=== PATIENT | female | born 2000 | race American Indian/Alaskan Native ===

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

== ENCOUNTER 2020-04-23 08:44 | Inpatient (IN) | payer MEDICAID ==
[2020-04-23] MEDS ORDERED: ePHEDrine SULFATE 50 MG/1 ML INJ IV PRN (09:04)
[2020-04-23] MEDS ORDERED: PROMETHAZINE 25 MG TAB PO PRN (09:04)
[2020-04-23] MEDS ORDERED: LIDOCAINE (2%) 20 MG/1 ML VIAL 20 ML MDV INFILTRATI ONE (09:04)
[2020-04-23] MEDS ORDERED: fentaNYL 100 MCG/2 ML INJ IV PRN (09:04)
[2020-04-23] MEDS ORDERED: BUTORPHANOL 2 MG/1 ML INJ IV PRN ×2 (09:04)
[2020-04-23] MEDS ORDERED: MINERAL OIL 30 ML ORAL LIQD PO PRN (09:04)
[2020-04-23] MEDS ORDERED: NALOXONE 0.4 MG/1 ML INJ IV PRN (09:04)
[2020-04-23] MEDS ORDERED: TERBUTALINE 1 MG/1 ML INJ SUB-Q PRN (09:04)
[2020-04-23] MEDS ORDERED: TERBUTALINE 1 MG/1 ML INJ IVP PRN (09:04)
[2020-04-23] MEDS ORDERED: ONDANSETRON 4 MG/2 ML INJ IV PRN (09:04)
[2020-04-23] MEDS ORDERED: OXYTOCIN DRIP 30 UNITS/500 ML BAG IV SCH (10:00)
[2020-04-23] MEDS ORDERED: OXYTOCIN 20 UNIT/1000ML DRIP 20 UNITS/1,000 ML BAG IV SCH (10:00)
[2020-04-23 10:20] LABS: Hematocrit 32.2 % (30.3-42.9); Hemoglobin 10.8 gm/dl (10.1-14.3); Mean Corpuscular HGB Conc 34 % (30-34); Mean Corpuscular Volume 83 fl (79-97); Platelet Count 212 K/mm3 (140-440); Red Blood Count 3.89 M/mm3 (3.65-5.03); Red Cell Distribution Width 14.6 % (13.2-15.2)
[2020-04-23] MEDS: miSOPROStol 25 MCG TAB PO SCH ×4 (12:27→23:00)
--- NOTE | 2020-04-23 12:50 | History and Physical Report ---
History of Present Illness Date of examination: 04/23/20 Date of admission: 04/23/20 08:44 Chief complaint: Here for induction secondary to post-dates . History of present illness: Pt is a 20 yo at 41w4d EGA who presents for induction of labor secondary to post-dates gestation. She has received care with [facility]. Her has been uncomplicated. She reports positive movement and denies contractions, leakage of fluid, or vaginal bleeding. She is GBS negative. Past History Past Medical History: no pertinent history Past Surgical History: no surgical history Family/Genetic History: none Social history: no significant social history - Obstetrical History Expected Date of Delivery: 04/12/20 Actual Gestation: 41 Week(s) 4 Day(s) : 1 Para: 0 Hx # Term Pregnancies: 0 Number of Pregnancies: 0 Spontaneous Abortions: 0 Induced : 0 Number of Living Children: 0 Medications and Allergies Allergies Allergy/AdvReac Type Severity Reaction Status Date / Time No Known Allergies Allergy Verified 05/24/17 21:33 Active Meds: Active Medications Butorphanol Tartrate (Stadol) 1 mg IV Q2H PRN PRN Reason: Pain, Moderate(4-6) LABOR PAIN Butorphanol Tartrate (Stadol) 2 mg IV Q2H PRN PRN Reason: Pain , Severe (7-10) Ephedrine Sulfate (Ephedrine Sulfate) 10 mg IV Q2M PRN PRN Reason: Hypotension Fentanyl (Sublimaze) 100 mcg IV Q2H PRN PRN Reason: Pain,Severe (7-10) LABOR PAIN Oxytocin/Sodium Chloride (Pitocin/Ns 20 Unit/1000ml Drip) 20 units in 1,000 mls @ 125 mls/hr IV DIRECT OSW[facility]D Oxytocin/Sodium Chloride (Pitocin/Ns 30 Unit/500ml) 30 units in 500 mls @ 1 mls/hr IV TITR [facility]D; Protocol Lactated Ringer's (Lactated Ringers) 1,000 mls @ 125 mls/hr IV DIRECT [facility] Mineral Oil (Mineral Oil) 30 ml PO QHS PRN PRN Reason: Constipation Misoprostol (Cytotec) 25 mcg PO Q4H OSW[facility]D Stop: 04/23/20 22:01 Last Admin: 04/23/20 12:27 Dose: 25 mcg Documented by: Naloxone HCl (Naloxone) 0.1 mg IV Q2MIN PRN PRN Reason: Res Rate </= 8 or 02 SAT < 92% Ondansetron HCl (Zofran) 4 mg IV Q8H PRN PRN Reason: Nausea And Vomiting Promethazine HCl (Phenergan) 25 mg PO Q6H PRN PRN Reason: Nausea And Vomiting Terbutaline Sulfate (Brethine) 0.25 mg SUB-Q ONCE PRN PRN Reason: Hyperstimulation/Hypertonicity Terbutaline Sulfate (Brethine) 0.25 mg IVP ONCE PRN PRN Reason: Hyperstimulation/Hypertonicity Review of Systems All systems: negative Genitourinary: no vaginal bleeding, no vaginal discharge, no leakage of fluid, no contractions - Vital Signs Vital signs: Vital Signs Temp Pulse Resp BP Pulse Ox 98.5 F 87 16 100/55 98 04/23/20 09:25 04/23/20 09:25 04/23/20 09:25 04/23/20 09:25 04/23/20 09:25 Temp Pulse Resp BP Pulse Ox 98.5 F 79 16 101/61 99 04/23/20 09:25 04/23/20 12:44 04/23/20 09:25 04/23/20 12:02 04/23/20 12:44 - Physical Exam Lungs: Positive: Normal air movement Abdomen: Positive: soft Uterus: Positive: enlarged (gravid, EFW 6.5lb) Extremities: Positive: normal - Obstetrical FHR: category 1 Uterine Contraction Monitor Mode: External Cervical Dilatation: 0 (per RN) Cervical Effacement Percentage: 0 station: -4 Uterine Contraction Pattern: Irregular Uterine Tone Measurement Phase: Contraction Uterine Contraction Intensity: Mild Results Result Diagrams: 04/23/20 09:44 All other labs normal. Assessment and Plan A: 20 yo at 41w4d EGA Late term GBS negative Membranes intact P: Admit to L&D for induction of labor Cervical ripening with Cytotec Anticipate
[2020-04-23] MEDS: LACTATED RINGERS 1,000 ML IV SCH (17:30)
[2020-04-24] MEDS ORDERED: miSOPROStol 25 MCG TAB PO SCH (05:20)
[2020-04-24] MEDS: miSOPROStol 25 MCG TAB PO SCH (05:23)
--- NOTE | 2020-04-24 15:36 | Progress Note ---
Assessment and Plan A: IUP at 41w5d undergoing induction of labor; s/p 4 doses of misoprostol P: Pt allowed to eat a regular meal then restart cervical ripening with cervidil Subjective - Subjective Date of service: 04/24/20 Principal diagnosis: undergoing induction of labor at 41 wks Interval history: Pt somewhat upset that she has not delivered yet, and she and her partner thought this process would take only one day. Expectations reviewed for induction process. Pt's cervix remains closed after 4 doses of cytotec. Patient reports: movement normal, contractions, no new complaints, no loss of fluid, no vaginal bleeding Objective - Vital Signs Vital Signs: Vital Signs - 12hr 04/24/20 04/24/20 04/24/20 03:40 03:45 04:00 Temperature 97.9 F Pulse Rate 73 72 Blood Pressure O2 Sat by Pulse 97 97 Oximetry 04/24/20 04/24/20 04/24/20 04:56 05:01 05:03 Temperature Pulse Rate 82 77 78 Blood Pressure 125/65 O2 Sat by Pulse 96 96 Oximetry 04/24/20 04/24/20 04/24/20 05:06 05:11 05:16 Temperature Pulse Rate 75 73 80 Blood Pressure O2 Sat by Pulse 96 96 95 Oximetry 04/24/20 04/24/20 04/24/20 05:21 05:26 05:31 Temperature Pulse Rate 79 74 80 Blood Pressure O2 Sat by Pulse 97 95 95 Oximetry 04/24/20 04/24/20 04/24/20 05:36 05:41 05:46 Temperature Pulse Rate 78 82 79 Blood Pressure O2 Sat by Pulse 95 95 95 Oximetry 04/24/20 04/24/20 04/24/20 05:51 05:56 06:01 Temperature Pulse Rate 79 81 81 Blood Pressure O2 Sat by Pulse 95 95 95 Oximetry 04/24/20 04/24/20 04/24/20 06:04 06:16 06:21 Temperature Pulse Rate 73 73 62 Blood Pressure 112/70 O2 Sat by Pulse 98 96 Oximetry 04/24/20 04/24/20 04/24/20 06:26 06:31 06:36 Temperature Pulse Rate 55 L 68 56 L Blood Pressure O2 Sat by Pulse 98 97 96 Oximetry 04/24/20 04/24/20 04/24/20 06:41 06:46 06:51 Temperature Pulse Rate 79 68 67 Blood Pressure O2 Sat by Pulse 95 95 95 Oximetry 04/24/20 04/24/20 04/24/20 06:56 07:01 07:04 Temperature Pulse Rate 65 80 71 Blood Pressure 99/50 O2 Sat by Pulse 96 95 Oximetry 04/24/20 04/24/20 04/24/20 07:06 07:11 07:16 Temperature Pulse Rate 62 76 77 Blood Pressure O2 Sat by Pulse 95 96 94 Oximetry 04/24/20 04/24/20 04/24/20 07:21 07:26 07:31 Temperature Pulse Rate 78 72 65 Blood Pressure O2 Sat by Pulse 94 95 97 Oximetry 04/24/20 04/24/20 04/24/20 07:36 07:52 07:57 Temperature Pulse Rate 72 78 76 Blood Pressure O2 Sat by Pulse 95 96 97 Oximetry 04/24/20 04/24/20 04/24/20 08:02 08:03 08:07 Temperature Pulse Rate 77 77 71 Blood Pressure 183/86 O2 Sat by Pulse 97 97 Oximetry 04/24/20 04/24/20 04/24/20 08:12 08:17 08:22 Temperature Pulse Rate 66 68 61 Blood Pressure O2 Sat by Pulse 96 96 96 Oximetry 04/24/20 04/24/20 04/24/20 08:27 08:32 08:37 Temperature Pulse Rate 61 71 63 Blood Pressure O2 Sat by Pulse 96 97 95 Oximetry 04/24/20 04/24/20 04/24/20 08:40 08:42 08:47 Temperature Pulse Rate 70 72 82 Blood Pressure 92/51 O2 Sat by Pulse 96 98 Oximetry 04/24/20 04/24/20 04/24/20 08:52 09:09 09:14 Temperature Pulse Rate 83 70 75 Blood Pressure O2 Sat by Pulse 97 96 95 Oximetry 04/24/20 04/24/20 04/24/20 09:19 09:24 09:29 Temperature Pulse Rate 74 74 62 Blood Pressure O2 Sat by Pulse 94 95 96 Oximetry 04/24/20 04/24/20 04/24/20 09:34 09:39 09:44 Temperature Pulse Rate 69 65 69 Blood Pressure O2 Sat by Pulse 96 95 95 Oximetry 04/24/20 04/24/20 04/24/20 09:49 09:54 09:59 Temperature Pulse Rate 69 76 79 Blood Pressure O2 Sat by Pulse 94 97 96 Oximetry 04/24/20 04/24/20 04/24/20 10:02 10:04 10:09 Temperature Pulse Rate 84 89 76 Blood Pressure 107/67 O2 Sat by Pulse 95 97 Oximetry 04/24/20 04/24/20 04/24/20 10:14 10:19 10:37 Temperature Pulse Rate 75 81 79 Blood Pressure O2 Sat by Pulse 97 97 98 Oximetry 04/24/20 04/24/20 04/24/20 10:42 10:47 10:52 Temperature Pulse Rate 83 79 78 Blood Pressure O2 Sat by Pulse 97 96 99 Oximetry 04/24/20 04/24/20 04/24/20 10:57 11:02 11:03 Temperature Pulse Rate 76 81 80 Blood Pressure 104/67 O2 Sat by Pulse 99 99 Oximetry 04/24/20 04/24/20 04/24/20 11:07 11:12 11:17 Temperature Pulse Rate 83 85 83 Blood Pressure O2 Sat by Pulse 99 100 100 Oximetry 04/24/20 04/24/20 04/24/20 11:22 11:27 11:32 Temperature Pulse Rate 78 84 74 Blood Pressure O2 Sat by Pulse 100 99 98 Oximetry 04/24/20 04/24/20 04/24/20 12:10 12:15 12:20 Temperature Pulse Rate 71 70 76 Blood Pressure O2 Sat by Pulse 98 99 96 Oximetry 04/24/20 04/24/20 04/24/20 12:25 12:30 12:35 Temperature Pulse Rate 72 71 76 Blood Pressure O2 Sat by Pulse 99 99 99 Oximetry 04/24/20 04/24/20 04/24/20 12:40 12:45 12:50 Temperature Pulse Rate 72 78 80 Blood Pressure O2 Sat by Pulse 100 99 99 Oximetry 04/24/20 04/24/20 04/24/20 12:55 13:00 13:02 Temperature Pulse Rate 76 71 68 Blood Pressure 106/68 O2 Sat by Pulse 100 98 Oximetry 04/24/20 13:05 Temperature Pulse Rate 81 Blood Pressure O2 Sat by Pulse 100 Oximetry - Exam Breasts: deferred FHR: auscultation normal Uterine Contraction Monitor Mode: External Uterine Contraction Pattern: Irregular
[2020-04-24] MEDS ORDERED: DINOPROSTONE 10 MG VAG SUPP VG ONE (16:59)
[2020-04-25] MEDS: miSOPROStol 25 MCG TAB VG SCH ×3 (00:18→08:45)
--- NOTE | 2020-04-25 07:58 | Progress Note ---
Assessment and Plan A: 20 yo at 41w6d EGA Late term GBS negative Membranes ruptured x28 hours No clinical signs of intraamniotic infection P: Continue cervical ripening- Cytotec PV Closely monitor clinical status Anticipate Subjective - Subjective Date of service: 04/25/20 Principal diagnosis: undergoing induction of labor at 41 wks Interval history: HD3 of IOL for post-dates gestation. She has received 5 doses of Cytotec and 1 dose of Cervidil, removed early. Patient reports: loss of fluid, contractions, no new complaints, no vaginal bleeding Objective - Vital Signs Vital Signs: Vital Signs - 12hr 04/24/20 04/24/20 04/24/20 19:56 20:01 20:06 Temperature Pulse Rate 89 66 81 Respiratory Rate Blood Pressure Blood Pressure [Right] O2 Sat by Pulse 96 95 95 Oximetry 04/24/20 04/24/20 04/24/20 20:11 20:16 20:21 Temperature Pulse Rate 68 72 74 Respiratory Rate Blood Pressure 93/56 Blood Pressure [Right] O2 Sat by Pulse 98 95 95 Oximetry 04/24/20 04/24/20 04/24/20 20:26 20:31 20:36 Temperature 98.3 F Pulse Rate 71 71 68 Respiratory Rate Blood Pressure Blood Pressure [Right] O2 Sat by Pulse 96 96 95 Oximetry 04/24/20 04/24/20 04/24/20 20:41 20:46 20:51 Temperature Pulse Rate 77 75 74 Respiratory Rate Blood Pressure Blood Pressure [Right] O2 Sat by Pulse 95 96 98 Oximetry 04/24/20 04/24/20 04/24/20 20:54 20:56 21:01 Temperature Pulse Rate 75 74 67 Respiratory Rate Blood Pressure Blood Pressure [Right] O2 Sat by Pulse 88 91 96 Oximetry 04/24/20 04/24/20 04/24/20 21:07 21:11 21:12 Temperature Pulse Rate 66 64 63 Respiratory Rate Blood Pressure 98/56 Blood Pressure [Right] O2 Sat by Pulse 95 95 Oximetry 04/24/20 04/24/20 04/25/20 21:17 21:22 00:00 Temperature 98.3 F Pulse Rate 72 66 Respiratory Rate Blood Pressure Blood Pressure [Right] O2 Sat by Pulse 93 96 Oximetry 04/25/20 04/25/20 04/25/20 00:02 07:06 07:21 Temperature 97.9 F Pulse Rate 63 36 L Respiratory 18 Rate Blood Pressure 104/59 Blood Pressure [Right] O2 Sat by Pulse 95 Oximetry 04/25/20 07:22 Temperature Pulse Rate 63 Respiratory Rate Blood Pressure 112/64 Blood Pressure 112/64 [Right] O2 Sat by Pulse 97 Oximetry - Exam Lungs: Normal air movement FHR: category 1 Uterine Contraction Monitor Mode: External Cervical Dilatation: 1 (per RN at 2100 on 04/24) Cervical Effacement Percentage: 50 station: -3 Uterine Contraction Pattern: Irregular
[2020-04-25] MEDS: LACTATED RINGERS 1,000 ML IV SCH ×2 (09:41→18:48)
[2020-04-25] MEDS: AMPICILLIN/NS 2 GM/100 ML 2 GM/100 ML BAG IV SCH ×2 (11:19→15:33)
[2020-04-25 14:18] LABS: Hematocrit 35.7 % (30.3-42.9); Hemoglobin 12.1 gm/dl (10.1-14.3); Mean Corpuscular HGB Conc 34 % (30-34); Mean Corpuscular Volume 82 fl (79-97); Platelet Count 223 K/mm3 (140-440); Red Blood Count 4.36 M/mm3 (3.65-5.03); Red Cell Distribution Width 14.2 % (13.2-15.2)
[2020-04-25] MEDS ORDERED: FAMOTIDINE 20 MG/2 ML INJ IV SCH (19:02)
[2020-04-25] MEDS ORDERED: METOCLOPRAMIDE 10 MG/2 ML INJ IV SCH (19:02)
[2020-04-25] MEDS ORDERED: BICITRA ORAL LIQD 30ML PO SCH (19:02)
[2020-04-25] MEDS ORDERED: BICITRA ORAL LIQD 30ML ONE (19:04)
[2020-04-25] MEDS ORDERED: FAMOTIDINE 20 MG/2 ML INJ IV ONE (19:05)
[2020-04-25] MEDS ORDERED: METOCLOPRAMIDE 10 MG/2 ML INJ ONE (19:05)
--- NOTE | 2020-04-25 19:08 | Progress Note ---
Assessment and Plan A: 20 yo at 41w6d EGA Late term GBS negative Non-reassuring FHT Failed induction of labor Membranes ruptured x39 hours No clinical signs of intraamniotic infection P: Discussed recommendation of primary section. Pt and partner express understanding and agree with plan. Dr. Casas notified and en route. Subjective - Subjective Date of service: 04/25/20 Principal diagnosis: undergoing induction of labor at 41 wks Interval history: HD3 of IOL for post-dates gestation. Currently on Pitocin 12 mIU/min, uncomfortable with contractions. Recurrent late decelerations noted. Cervix unchanged. Membranes ruptured x39 hours. Patient reports: loss of fluid, contractions, no new complaints, no vaginal bleeding Objective - Vital Signs Vital Signs: Vital Signs - 12hr 04/25/20 04/25/20 04/25/20 07:06 07:21 07:22 Temperature 97.9 F Pulse Rate 36 L 63 Respiratory 18 Rate Blood Pressure 112/64 Blood Pressure 112/64 [Right] O2 Sat by Pulse 95 97 Oximetry 04/25/20 04/25/20 04/25/20 11:39 12:09 12:39 Temperature Pulse Rate 89 66 62 Respiratory Rate Blood Pressure 89/52 119/76 115/76 Blood Pressure [Right] O2 Sat by Pulse Oximetry 04/25/20 04/25/20 04/25/20 13:39 14:46 15:34 Temperature 97.9 F Pulse Rate 96 H 57 L 60 Respiratory 16 Rate Blood Pressure 119/83 94/63 Blood Pressure 93/51 [Right] O2 Sat by Pulse 96 Oximetry 04/25/20 04/25/20 04/25/20 15:36 15:40 15:41 Temperature Pulse Rate 59 L 58 L 80 Respiratory Rate Blood Pressure 93/51 84/50 Blood Pressure [Right] O2 Sat by Pulse 95 97 Oximetry 04/25/20 04/25/20 04/25/20 15:46 15:57 16:02 Temperature Pulse Rate 59 L 68 56 L Respiratory Rate Blood Pressure Blood Pressure [Right] O2 Sat by Pulse 100 99 98 Oximetry 04/25/20 04/25/20 04/25/20 16:07 16:09 16:12 Temperature Pulse Rate 57 L 67 56 L Respiratory Rate Blood Pressure 91/53 Blood Pressure [Right] O2 Sat by Pulse 99 99 Oximetry 04/25/20 04/25/20 04/25/20 16:17 16:22 16:27 Temperature Pulse Rate 79 61 63 Respiratory Rate Blood Pressure Blood Pressure [Right] O2 Sat by Pulse 99 98 99 Oximetry 04/25/20 04/25/20 04/25/20 16:38 16:39 16:44 Temperature Pulse Rate 69 68 75 Respiratory Rate Blood Pressure 113/74 Blood Pressure [Right] O2 Sat by Pulse 99 98 Oximetry 04/25/20 04/25/20 04/25/20 16:49 16:54 16:59 Temperature Pulse Rate 75 61 60 Respiratory Rate Blood Pressure Blood Pressure [Right] O2 Sat by Pulse 98 97 97 Oximetry 04/25/20 04/25/20 04/25/20 17:04 17:40 18:39 Temperature Pulse Rate 56 L 56 L 63 Respiratory Rate Blood Pressure 100/56 115/82 Blood Pressure [Right] O2 Sat by Pulse 91 Oximetry - Exam Abdomen: Present: soft FHR: category 3 (recurrent late decelerations) Uterine Contraction Monitor Mode: External Cervical Dilatation: 1 Cervical Effacement Percentage: 85 station: -2 Uterine Contraction Frequency (min): 3 Uterine Contraction Pattern: Regular Uterine Tone Measurement Phase: Contraction Uterine Contraction Intensity: Moderate - Labs Labs: Laboratory Results - last 24 hr 04/25/20 13:48 WBC 8.2 RBC 4.36 Hgb 12.1 Hct 35.7 MCV 82 MCH 28 MCHC 34 RDW 14.2 Plt Count 223
[2020-04-25] MEDS ORDERED: DEXMEDETOMIDINE 200 MCG/2 ML VIAL IV ONE (19:51)
[2020-04-25] MEDS ORDERED: PHENYLEPHRINE/NS 1,000 MCG/10 ML SYRINGE (OR USE) IV ONE ×2 (19:51→21:24)
[2020-04-25] MEDS ORDERED: dexAMETHasone 20 MG/5 ML VIAL ONE (19:51)
--- NOTE | 2020-04-25 19:59 | Event Note ---
Date: 04/25/20 20-year-old G1, P0 at 41+6 admitted for postdates induction. Her intrapartum course is been complicated by failed induction and nonreassuring heart rate tracing. The patient is counseled for primary delivery.
[2020-04-25] MEDS ORDERED: OXYTOCIN 20 UNIT/1000ML DRIP 20 UNITS/1,000 ML BAG IV SCH ×2 (20:00→21:00)
[2020-04-25] MEDS ORDERED: LACTATED RINGERS 1,000 ML IV SCH (20:00)
[2020-04-25] MEDS ORDERED: ceFAZolin/Water 2 GM/20 ML 2 GM/20 ML SYRINGE IV NR (20:00)
[2020-04-25] MEDS ORDERED: WITCH HAZEL/ GLYCERIN PAD TP PRN (20:01)
[2020-04-25] MEDS ORDERED: LANOLIN/ZINC/DIMETHICONE (LANSINOH) 7 GM TP PRN (20:01)
[2020-04-25] MEDS ORDERED: MORPHINE 4 MG/1 ML INJ IV PRN (20:01)
[2020-04-25] MEDS ORDERED: ACETAMINOPHEN 325 MG TAB PO PRN (20:01)
[2020-04-25] MEDS ORDERED: SIMETHICONE 80 MG CHEW TAB PO PRN (20:01)
[2020-04-25] MEDS ORDERED: NALOXONE 0.4 MG/1 ML INJ IV PRN (20:01)
--- NOTE | 2020-04-25 20:03 | Procedure Note ---
OB Delivery Note - Delivery Date of Delivery: 04/25/20 Surgeon: CHARITO DUMAS Estimated blood loss: other (700ml) - Section Preop diagnosis: arrest of dilation, nonreassuring FHR tracing Postop diagnosis: same section procedure: section, primary low transverse Disposition: PACU Complications: none - A at 1 minute: 8 at 5 minutes: 9 Infant Gender: Male (Weight 8 pounds 3 ounces)
[2020-04-25] MEDS ORDERED: ceFAZolin/STERILE WATER 2 GM/20 ML SYRINGE IV ONE (20:22)
[2020-04-25] MEDS ORDERED: WATER FOR IRRIG STERILE 1,500 ML BOTTLE IR ONE (20:33)
[2020-04-25] MEDS ORDERED: SODIUM CHLORIDE 0.9% IRR 1,500 ML BOTTLE IR ONE (20:33)
[2020-04-25] MEDS ORDERED: SODIUM CHLORIDE 0.9% 500 ML 500 ML ONE (20:34)
--- NOTE | 2020-04-25 21:12 | Operative Report ---
Operative Report Operative Report: Date of surgery: April 25, 2020 Preoperative diagnosis: at 41+6 weeks; nonreassuring heart rate tracing; failed induction Postoperative diagnosis: Same as above Procedure: Primary low transverse delivery Surgeon: Arleth Goncalves M.D. Anesthesia: Regional Estimated blood loss: 700 mL IV fluids: 1350ml Urine output: 250 mL Findings: Liveborn male with Apgars of 8 and 9 weight 8 pounds 3 ounces Indications: 20-year-old G1, P0 at 41+6 weeks who was admitted for postdates induction. Her intrapartum course was complicated by nonreassuring heart rate tracing and arrest of dilatation at 2 cm. Procedure: The patient was taken to the operating room and given regional anesthesia without complication. She was prepped and draped in a normal sterile fashion. A Pfannenstiel skin incision was made down to layer the fascia which was nicked in the midline extended laterally with the Bovie cautery. The superior aspect of the rectus fascia was grasped with Shruti clamps x2 and the rectus muscles off sharply. This was done in inferior fashion as well. The rectus muscle midline and peritoneum entered bluntly. An Oliverio retractor was then inserted. A bladder blade was placed. The vesicouterine peritoneum was then entered sharply with Metzenbaum scissors. A bladder flap was created digitally. A low transverse uterine incision was then made and extended digitally. There was clear fluid upon entry into the uterine cavity. The head was delivered through the incision with fundal pressure. The cord was clamped and cut x2 and infant was passed off to pediatrics. The placenta was then manually extracted. The uterus was then exteriorized and cleared of clots and debris. The uterine incision was then closed in a running locked fashion with 0 Vicryl additional imbricating stitch was applied for 2 layer closure. The serosa was then reapproximated with 3-0 Vicryl. The posterior cul-de-sac was then copiously irrigated. The uterus was replaced back into the abdomen and pelvis were the gutters were then irrigated. The Oliverio retractor was then removed. The peritoneum was then reapproximated with 3-0 Vicryl incorporating the rectus muscle. The fascia was then closed with 0 Vicryl in a running fashion. The skin was then reapproximated with 3-0 Monocryl on a Gerry needle subcuticular fashion. Steri-Strips to place across the incision and a Crede procedures performed at the end of the surgery. A pressure dressing was applied to the incision. The surgery productive of a liveborn male infant with Apgars of 8 and 9 weight 8 pounds 3 ounces. The patient was taken to the recovery room in stable condition. All sponge laps and needle counts correct x2.
[2020-04-25] MEDS ORDERED: ONDANSETRON 4 MG/2 ML INJ ONE (21:24)
[2020-04-25] MEDS ORDERED: ePHEDrine SULFATE 50 MG/1 ML INJ ONE (21:31)
--- NOTE | 2020-04-25 22:15 | Anesthesia Day of Surgery ---
Anesthesia Day of Surgery - Day of Surgery Patient Examined: Yes Patient H&P Reviewed: Yes Patient is NPO: Yes Beta Blockers: No Cardiac Clearance: No Pulmonary Clearance: No Weston's Test: N/A
--- NOTE | 2020-04-25 22:49 | Anesthesia Consultation ---
Anesthesia Consult and Med Hx Date of service: 04/25/20 - Airway Anesthetic Teeth Evaluation: Good ROM Head & Neck: Adequate Mental/Hyoid Distance: Adequate Mallampati Class: Class II Intubation Access Assessment: Good - Pulmonary Exam CTA: Yes - Cardiac Exam Cardiac Exam: RRR - Pre-Operative Health Status ASA Pre-Surgery Classification: ASA2 Proposed Anesthetic Plan: Spinal - Pulmonary Hx Smoking: No Hx Asthma: No Hx Respiratory Symptoms: No SOB: No COPD: No Home Oxygen Therapy: No Hx Pneumonia: No Hx Sleep Apnea: No - Cardiovascular System Hx Hypertension: No Hx Coronary Artery Disease: No Hx Heart Attack/AMI: No Hx Angina: No Hx Percutaneous Transluminal Coronary Angioplasty (PTCA): No Hx Cardia Arrhythmia: No Hx Pacemaker: No Hx Internal Defibrillator: No Hx Valvular Heart Disease: No Hx Heart Murmur: No Hx Peripheral Vascular Disease: No - Central Nervous System Hx Neuromuscular Disorder: No Hx Seizures: No CVA: No Hx Back Pain: Yes (Bilateral sciatica nerve pain during ) Hx Psychiatric Problems: No - Gastrointestinal Hx Ulcer: No Hx Gastroesophageal Reflux Disease: Yes (nausia and vomiting pre-op) - Endocrine Hx Renal Disease: No Hx End Stage Renal Disease: No Hx Cirrhosis: No Hx Liver Disease: No Hx Insulin Dependent Diabetes: No Hx Non-Insulin Dependent Diabetes: No Hx Thyroid Disease: No Hx Hypothyroidism: No Hx Hyperthyroidism: No - Hematic Hx Anemia: No Hx Sickle Cell Disease: No - Other Systems Hx Alcohol Use: No Hx Substance Use: No Hx Cancer: No Hx Obesity: Yes - Additional Comments Anesthesia Medical History Comments: risk, bennifets and alternitive of anesthesia discussed at [facility] with patient and family member. All questions and conceres were answered
[2020-04-26] MEDS: KETOROLAC 30 MG/1 ML INJ IV PRN ×2 (01:22→08:12)
[2020-04-26] MEDS ORDERED: LACTATED RINGERS 1,000 ML IV SCH (08:00)
--- NOTE | 2020-04-26 09:56 | Progress Note ---
Assessment and Plan A: POD1 s/p pLTCS BP low, asymptomatic Awaiting pp H&H Need for breast feeding education P: Initiate regular diet Closely monitor clinical status Breast feeding education Subjective - Subjective Date of service: 04/26/20 Principal diagnosis: s/p primary LTCS Interval history: POD1 s/p primary LTCS for non-reassuring FHT and failed induction of labor Patient reports: appetite normal, voiding normally, pain well controlled, flatus, ambulating normally [place]: doing well, nursing well (nipples sore) Objective - Vital Signs Latest vital signs: Vital Signs Temp Pulse Resp BP BP Pulse Ox 04/26/20 08:27 98.1 F 74 20 96/56 96 04/26/20 04:37 98.2 F 70 20 91/49 96 04/25/20 22:45 98.6 F 67 16 101/54 96 04/25/20 22:30 65 16 99/53 100 04/25/20 22:15 60 18 98/55 100 04/25/20 22:00 61 14 91/49 96 04/25/20 21:45 80 18 106/26 98 04/25/20 21:40 77 14 90/51 95 04/25/20 21:35 76 16 83/41 98 04/25/20 21:30 69 16 96/75 97 04/25/20 21:24 98.6 F 64 16 77/27 97 04/25/20 19:35 98.3 F 04/25/20 18:39 63 115/82 04/25/20 17:40 56 L 100/56 04/25/20 17:04 56 L 91 04/25/20 16:59 60 97 04/25/20 16:54 61 97 04/25/20 16:49 75 98 04/25/20 16:44 75 98 04/25/20 16:39 68 99 04/25/20 16:38 69 113/74 04/25/20 16:27 63 99 04/25/20 16:22 61 98 04/25/20 16:17 79 99 04/25/20 16:12 56 L 99 04/25/20 16:09 67 91/53 04/25/20 16:07 57 L 99 04/25/20 16:02 56 L 98 04/25/20 15:57 68 99 04/25/20 15:46 59 L 100 08/22/20 15:41 80 97 04/25/20 15:40 58 L 84/50 04/25/20 15:36 59 L 93/51 95 04/25/20 15:34 97.9 F 60 16 93/51 96 04/25/20 14:46 57 L 94/63 04/25/20 13:39 96 H 119/83 04/25/20 12:39 62 115/76 04/25/20 12:09 66 119/76 04/25/20 11:39 89 89/52 Intake and Output 04/25/20 04/26/20 04/26/20 23:59 07:59 15:59 Intake Total 3888.4 240 Output Total 500 600 Balance 3388.4 -360 Intake: IV 3888.4 Lactated Ringers 1,000 ml 1000 @ 125 mls/hr IV DIRECT OSWALD Rx#:[id number] PITOCin/NS 30 UNIT/500ML 38.4 30 units In 500 ml @ 4 MILLIUNITS/MIN 4 mls/hr IV TITR OSWALD Rx#:[id number] Oral 240 Output: Urine 500 600 Indwelling Catheter 600 Other: Total, Intake Amount 240 Total, Output Amount 600 Estimated Blood Loss 700 - Exam Lungs: Present: Normal air movement Abdomen: Present: soft. Absent: distention Uterus: Present: firm, fundal height below umbilicus. Absent: bogginess Extremities: Present: normal Incision: Present: dressed
[2020-04-26] MEDS: oxyCODONE /ACETAMINOPHEN 5-325MG TAB PO PRN ×2 (10:31→22:44)
--- NOTE | 2020-04-26 11:27 | Post Anesthesia Evaluation ---
- Post Anesthesia Evaluation Patient Participated: Yes Airway Patent: Yes Stable Respiratory Function: Yes Nausea/Vomiting: No Temp > 96.8F: Yes Pain Manageable: Yes Adequeate Hydration: Yes Anesthesia Complications: No Block Receding Appropriately: Yes Patient on Ventilator: No
[2020-04-26 16:54] LABS: Hemoglobin 9.3 gm/dl (10.1-14.3)
[2020-04-26] MEDS: IBUPROFEN 800 MG TAB PO PRN (16:55)
[2020-04-26 17:05] LABS: Hematocrit 26.7 % (30.3-42.9)
[2020-04-27] MEDS: IBUPROFEN 800 MG TAB PO PRN (06:10)
--- NOTE | 2020-04-27 08:19 | Progress Note ---
Assessment and Plan - Patient Problems (1) delivery delivered Current Visit: Yes Status: Acute Plan to address problem: Patient doing well Discharge home Subjective - Subjective Date of service: 04/27/20 Principal diagnosis: s/p primary LTCS Interval history: The patient denies any significant complaints. She is breast-feeding without difficulty. Her pain is well controlled. Patient reports: appetite normal, voiding normally, pain well controlled [place]: doing well, nursing well Objective - Vital Signs Latest vital signs: Vital Signs Temp Pulse Resp BP BP Pulse Ox 04/27/20 01:07 98.3 F 85 18 106/59 96 04/26/20 21:08 98.4 F 86 18 98/60 97 04/26/20 16:44 98.4 F 74 16 95/52 98 04/26/20 12:00 97.9 F 60 20 98/60 97 04/26/20 08:27 98.1 F 74 20 96/56 96 Intake and Output 04/26/20 04/27/20 04/27/20 22:59 06:59 14:59 Intake Total 120 360 Output Total 1300 Balance -1180 360 Intake: Oral 120 Intake, Free Water 360 Output: Urine 1300 Void 1300 Other: Total, Intake Amount 120 Total, Output Amount 600 # Voids Void 2 - Exam Abdomen: Present: normal appearance, soft - Labs Labs: Abnormal lab results 04/26/20 Range/Units 16:36 Hgb 9.3 L (10.1-14.3) gm/dl Hct 26.7 L D (30.3-42.9) %
--- NOTE | 2020-04-27 08:20 | Discharge Summary ---
Providers - Providers Date of Admission: 04/23/20 08:44 Date of discharge: 04/27/20 Attending physician: OFELIA BECERRIL Primary care physician: CHARITO DUMAS Hospitalization Reason for admission: induction of labor Delivery: Procedure: section, primary low transverse Incision: normal Discharge diagnosis: IUP at term delivered baby: male Hospital course: The patient was admitted for induction of labor secondary to postterm . The patient had a failed induction with evidence of nonreassuring tracing at the conclusion. She underwent a primary delivery. Her course was uneventful. Condition at discharge: Good Disposition: DC-01 TO HOME OR SELFCARE - Discharge Diagnoses (1) delivery delivered Status: Acute Plan - Discharge Medications Prescriptions: Ibuprofen [Motrin] 800 mg PO Q8HR PRN #60 tablet PRN Reason: Pain , Severe (7-10) oxyCODONE /ACETAMINOPHEN [Percocet 5/325] 1 tab PO Q6HR PRN #30 tablet PRN Reason: Pain - Provider Discharge Summary Activity: no sex for 6 weeks, no heavy lifting 4 weeks, no strenuous exercise Diet: routine Instructions: routine Additional instructions: [] Smoking cessation referral if applicable(refer to patient education folder for contact #) [] Refer to [facility] Booklet Call your doctor immediately for: * Fever > 100.5 * Heavy vaginal bleeding ( >1 pad per hour) * Severe persistent headache * Shortness of breath * Reddened, hot, painful area to leg or breast * Drainage or odor from incision. * Keep incision clean and dry at all times and follow doctor's instructions regarding bathing/showering Schedule incision check in 2 weeks - Follow up plan Forms: [facility] Discharge Summary
[2020-04-27 08:55] VITALS: BP 120/59
[2020-04-27] MEDS: oxyCODONE /ACETAMINOPHEN 5-325MG TAB PO PRN (09:01)
== END 2020-04-27 13:22 | disposition home or self-care (01) | DRG 766 ==
LOC: LD 08:44 → OB 04-25 23:34
PROVIDERS: ADMIT Obstetrics & Gynecology; ATTEND Obstetrics & Gynecology
PROC: 3E0P7VZ Introduction of Hormone into Female Reproductive, Via Natural or Artificial Opening (ICD-10-PCS; principal; 2020-04-23)
PROC: 10D00Z1 Extraction of Products of Conception, Low, Open Approach (ICD-10-PCS; 2020-04-25)
DX: O48.0 Post-term pregnancy (principal); O76 Abnormality in fetal heart rate and rhythm complicating labor and delivery; O61.0 Failed medical induction of labor; Z37.0 Single live birth; O99.62 Diseases of the digestive system complicating childbirth; K21.9 Gastro-esophageal reflux disease without esophagitis; O99.214 Obesity complicating childbirth; E66.9 Obesity, unspecified; Z3A.41 41 weeks gestation of pregnancy
CPT/HCPCS: 36415; 85014; 85018; 85027; 86592; 86850; 86900; 86901; G0378; A6250; J0290; J0595; J0690; J1100; J1885; J2370; J2405; J2590; J2765; J3010; J3490; J7040; J7120; Q0169